=== PATIENT | female | born 1995 | race Caucasian/White ===

== ENCOUNTER 2016-11-26 15:58 | Emergency (ER) | payer SELFPAY ==
--- NOTE | 2016-11-26 17:31 | ED CLINICAL REPORT ---
Clinical Report - Physicians/Mid Levels [facility] [address] [place] [address] 11/26/2016 15:58 Patient: CANDE FOSTER Time Seen: 16:29; initial patient contact. Arrived- By private vehicle. Not in custody. Historian- patient. HISTORY OF PRESENT ILLNESS Chief Complaint: ANXIOUS and DEPRESSED. This started several weeks ago. No situational problems or recent drug use or alcohol consumption. Has not been sleeping. She has had anxiety. Has been depressed. No anger, unusual behavior, paranoia, delusions or suicidal thoughts. No self-injury inflicted or hallucinations. The symptoms are described as moderate. No injury is present. Similar symptoms previously: Recent medical care: Not recently seen/assessed. REVIEW OF SYSTEMS No headache, dizziness, chest pain, abdominal pain or vomiting. No diarrhea. She has had palpitations. All systems otherwise negative, except as recorded above. PAST HISTORY ( Anxiety . Depression. Asthma). SOCIAL HISTORY Never smoker. Occasional alcohol use. Has social support. Has place to stay. ADDITIONAL NOTES The nursing notes have been reviewed. PHYSICAL EXAM Vital Signs: 11/26/2016 16:15 BP: 150/81. HR: 84. RR: 18. O2 saturation: 97%. Temp: 97.6 F. Pain level now: 2/10. Have been reviewed. Hypertensive. Heart rate normal. Respiratory rate normal. Temperature normal. Oxygen saturation normal. Appearance: Alert. No acute distress. Appearance is normal. CVS: Normal heart rate and rhythm. Heart sounds normal. Respiratory: No respiratory distress. Breath sounds normal. Skin: Skin warm and dry. Normal skin color. Psych / Neuro: Oriented X 3. Appears depressed. Speech normal. Cognition normal. Thought process and content normal. Insight and judgement normal. PROGRESS AND PROCEDURES Course of Care: Vistaril 50mg IM given. Physical exam findings are improved. Symptoms better. Disposition: Discharged home in good and improved condition. Condition: good. CLINICAL IMPRESSION Anxiety reaction. 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 No suicidal ideation or suicidal attempt. INSTRUCTIONS Do not work today, tomorrow. Your Current Medications: CONTINUE TAKING THE FOLLOWING MEDICATIONS: None*. Prescription Medications: Celexa 40 mg: take 1 orally every day. Dispense thirty (30). No refill. Substitution is permissible. Vistaril 50 mg: take 1 orally every 6 hours as needed for anxiety. Dispense thirty (30). No refill. Substitution is permissible. Follow-up: Screening today revealed the patient's blood pressure to be in the hypertensive range. The patient should follow up with a primary care provider for blood pressure management. Follow-up with: [facility], , , [address], , [place], [address] Follow up in two days. Call for an appointment. (Electronically signed by Robles Hernandez Dr. 11/26/2016 18:05)
--- NOTE | 2016-11-26 17:31 | ED NURSING NOTES ---
Clinical Report - Nurses [facility] [address] [place] [address] 11/26/2016 15:58 [id number] 16:15 11/26/16. BP: 150/81 taken on the left arm, while sitting. HR: 84. RR: 18. O2 saturation: 97% on room air. Temp: 97.6 F. Pain level now: 09/12. --16:15 Aisha Aldana R.N. Acuity: LEVEL 3. Chief Complaint: (Anxiety reaction started yesterday, after argument with boyfriend). Alert. No acute distress. --16:21 Aisha Aldana R.N. Weight: 158.7 kg stated. Height/Length: 71 inches Per Patient. BMI: 48.8. --16:20 Aisha Aldana R.N. Medications None. --16:16 Aisha Aldana R.N. Medication/allergy information source: the patient. --16:21 Aisha Aldana R.N. Allergies None. --16:16 Aisha Aldana R.N. History Arrived by private vehicle. Historian: patient. Primary physician (carol). --16:15 Aisha Aldana R.N. This started yesterday. 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 PAST MEDICAL HX: Immunizations: has received tetanus within 10 years. Last normal menstrual period- November 06. SURGERY HX: Adenoidectomy. Tonsillectomy. SOCIAL HX: Never smoker. Occasional alcohol use. History of drug use: marijuana. Recently used drugs days ago. ABUSE ASSESSMENT: No report of abuse. FALL RISK ASSESSMENT: Fall risk assessment completed. No fall risk identified. NUTRITIONAL RISK ASSESSMENT: The nutritional risk assessment revealed no deficiencies. FUNCTIONAL ASSESSMENT: Functional assessment: no impairments noted. LEARNING NEEDS ASSESSMENT: The learning needs assessment revealed no barriers. SKIN INTEGRITY ASSESSMENT: Skin integrity risk assessment completed. No skin integrity risk identified. --16:21 Aisha Aldana R.N. PROBLEMS: Anxiety . Depression. Asthma. --16:17 Aisha Aldana R.N. Interventions ID band on patient. To room. --16:21 Aisha Aldana R.N. PHYSICAL ASSESSMENT Ambulatory to room. Patient gowned. GENERAL / NEURO / PSYCH: Alert. Oriented X 4. Appears anxious. HEENT: Mucous membranes are pink. RESPIRATORY: Respirations not labored. CVS: Capillary refill less than 2 seconds. GI / : Abdomen nontender. SKIN: Skin intact. Skin is warm and dry. Normal skin turgor. --16:21 Aisha Aldana R.N. NURSING PROGRESS NOTES Patient gowned. Head of bed elevated. Two patient identifiers checked. Call light placed in reach. Side rails up x 2. Bed placed in lowest position. Brakes of bed on. Patient ready for evaluation. --16:22 Aisha Aldana R.N. 17:08 11/26/2016 Vistaril (HydrOXYzine HCl) IM 50 mg given. Given in the right gluteus gregorio. Allergies verified, confirmed 5 rights and sedative warning given to the patient. --17:08 Aisha Aldana R.N. DISPOSITION / DISCHARGE Departure time: 1740. Condition at departure: improved. No learning barriers present. Discharge instructions provided and reviewed with the patient. Reviewed medication(s) side effects, precautions, dosing and course information. Prescription(s) given to the patient. Patient verbalized understanding. Written instructions provided in Malay. The patient was discharged home and accompanied by plumbing installer. She left the Emergency Department ambulatory and via private vehicle. Detention Sergeant driving. Medication list reviewed and validated. --19:39 Aisha Aldana R.N. 17:47 11/26/16. BP: 154/74. HR: 88. RR: 20. O2 saturation: 98% on room air. Temp: deferred. 16:15 11/26/16. BP: 150/81 taken on the left arm, while sitting. HR: 84. RR: 18. O2 saturation: 97% on room air. Temp: 97.6 F. Pain level now: 09/12. --19:39 Aisha Aldana R.N. Locked/Released at 11/26/2016 19:39 by Aisha Aldana R.N.
--- NOTE | 2016-11-26 17:31 | ED CLINICAL REPORT ---
Clinical Report - Physicians/Mid Levels [facility] [address] [place] [address] 11/26/2016 15:58 Patient: CANDE FOSTER Time Seen: 16:29; initial patient contact. Arrived- By private vehicle. Not in custody. Historian- patient. HISTORY OF PRESENT ILLNESS Chief Complaint: ANXIOUS and DEPRESSED. This started several weeks ago. No situational problems or recent drug use or alcohol consumption. Has not been sleeping. She has had anxiety. Has been depressed. No anger, unusual behavior, paranoia, delusions or suicidal thoughts. No self-injury inflicted or hallucinations. The symptoms are described as moderate. No injury is present. Similar symptoms previously: Recent medical care: Not recently seen/assessed. REVIEW OF SYSTEMS No headache, dizziness, chest pain, abdominal pain or vomiting. No diarrhea. She has had palpitations. All systems otherwise negative, except as recorded above. PAST HISTORY ( Anxiety . Depression. Asthma). SOCIAL HISTORY Never smoker. Occasional alcohol use. Has social support. Has place to stay. ADDITIONAL NOTES The nursing notes have been reviewed. PHYSICAL EXAM Vital Signs: 11/26/2016 16:15 BP: 150/81. HR: 84. RR: 18. O2 saturation: 97%. Temp: 97.6 F. Pain level now: 2/10. Have been reviewed. Hypertensive. Heart rate normal. Respiratory rate normal. Temperature normal. Oxygen saturation normal. Appearance: Alert. No acute distress. Appearance is normal. CVS: Normal heart rate and rhythm. Heart sounds normal. Respiratory: No respiratory distress. Breath sounds normal. Skin: Skin warm and dry. Normal skin color. Psych / Neuro: Oriented X 3. Appears depressed. Speech normal. Cognition normal. Thought process and content normal. Insight and judgement normal. PROGRESS AND PROCEDURES Course of Care: Vistaril 50mg IM given. Physical exam findings are improved. Symptoms better. Disposition: Discharged home in good and improved condition. Condition: good. CLINICAL IMPRESSION Anxiety reaction. 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 No suicidal ideation or suicidal attempt. INSTRUCTIONS Do not work today, tomorrow. Your Current Medications: CONTINUE TAKING THE FOLLOWING MEDICATIONS: None*. Prescription Medications: Celexa 40 mg: take 1 orally every day. Dispense thirty (30). No refill. Substitution is permissible. Vistaril 50 mg: take 1 orally every 6 hours as needed for anxiety. Dispense thirty (30). No refill. Substitution is permissible. Follow-up: Screening today revealed the patient's blood pressure to be in the hypertensive range. The patient should follow up with a primary care provider for blood pressure management. Follow-up with: [facility], , , [address], , [place], [address] Follow up in two days. Call for an appointment. (Electronically signed by Robles Hernandez Dr. 11/26/2016 18:05)
--- NOTE | 2016-11-26 17:31 | ED ORDER SUMMARY ---
..... Patient: CANDE FOSTER [facility] VisitID: [id number] [address] [place] [address] 21y, F Registration Date/Time: 11/26/2016 ORDER SHEET Weight: 158.7 kg (stated) Allergies: None GENERAL ORDERS: MEDICATION ORDERS: Vistaril IM 50 mg (NOW, Do not administer intravenously) (16:37 11/26/2016 Arslan Guajardo) (Ack 16:57 SRoberts R.N.) (17:08 Hali R.N.) IV FLUIDS: ORDER SHEET NOTES: [Electronically signed by Robles Hernandez Dr. (18:05 11/26/2016)] [Electronically signed by Aisha Aladna R.N. (19:39 11/26/2016)] [Electronically locked/signed by Aisha Aldana R.N. (19:39 11/26/2016)]
--- NOTE | 2016-11-26 17:31 | ED ORDER SUMMARY ---
..... Patient: CANDE FOSTER OrderSheet [facility] VisitID: [id number] [address] [place] [address] 21y, F Registration Date/Time: 11/26/2016 ORDER SHEET Weight: 158.7 kg (stated) Allergies: None GENERAL ORDERS: MEDICATION ORDERS: Vistaril IM 50 mg (NOW, Do not administer intravenously) (16:37 11/26/2016 Arslan Guajardo) (Ack 16:57 SRoberts R.N.) (17:08 Hali R.N.) IV FLUIDS: ORDER SHEET NOTES: [Electronically signed by Robles Hernandez Dr. (18:05 11/26/2016)] [Electronically signed by Aisha Aldana R.N. (19:39 11/26/2016)] [Electronically locked/signed by Aisha Aldana R.N. (19:39 11/26/2016)]
--- NOTE | 2016-11-26 17:31 | ED NURSING NOTES ---
Clinical Report - Nurses [facility] [address] [place] [address] 11/26/2016 15:58 [id number] 16:15 11/26/16. BP: 150/81 taken on the left arm, while sitting. HR: 84. RR: 18. O2 saturation: 97% on room air. Temp: 97.6 F. Pain level now: 09/12. --16:15 Aisha Aldana R.N. Acuity: LEVEL 3. Chief Complaint: (Anxiety reaction started yesterday, after argument with boyfriend). Alert. No acute distress. --16:21 Aisha Aldana R.N. Weight: 158.7 kg stated. Height/Length: 71 inches Per Patient. BMI: 48.8. --16:20 Aisha Aldana R.N. Medications None. --16:16 Aisha Aldana R.N. Medication/allergy information source: the patient. --16:21 Aisha Aldana R.N. Allergies None. --16:16 Aisha Aldana R.N. History Arrived by private vehicle. Historian: patient. Primary physician (carol). --16:15 Aisha Aldana R.N. This started yesterday. 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 PAST MEDICAL HX: Immunizations: has received tetanus within 10 years. Last normal menstrual period- November 06. SURGERY HX: Adenoidectomy. Tonsillectomy. SOCIAL HX: Never smoker. Occasional alcohol use. History of drug use: marijuana. Recently used drugs days ago. ABUSE ASSESSMENT: No report of abuse. FALL RISK ASSESSMENT: Fall risk assessment completed. No fall risk identified. NUTRITIONAL RISK ASSESSMENT: The nutritional risk assessment revealed no deficiencies. FUNCTIONAL ASSESSMENT: Functional assessment: no impairments noted. LEARNING NEEDS ASSESSMENT: The learning needs assessment revealed no barriers. SKIN INTEGRITY ASSESSMENT: Skin integrity risk assessment completed. No skin integrity risk identified. --16:21 Aisha Aldana R.N. PROBLEMS: Anxiety . Depression. Asthma. --16:17 Aisha Aldana R.N. Interventions ID band on patient. To room. --16:21 Aisha Aldana R.N. PHYSICAL ASSESSMENT Ambulatory to room. Patient gowned. GENERAL / NEURO / PSYCH: Alert. Oriented X 4. Appears anxious. HEENT: Mucous membranes are pink. RESPIRATORY: Respirations not labored. CVS: Capillary refill less than 2 seconds. GI / : Abdomen nontender. SKIN: Skin intact. Skin is warm and dry. Normal skin turgor. --16:21 Aisha Aldana R.N. NURSING PROGRESS NOTES Patient gowned. Head of bed elevated. Two patient identifiers checked. Call light placed in reach. Side rails up x 2. Bed placed in lowest position. Brakes of bed on. Patient ready for evaluation. --16:22 Aisha Aldana R.N. 17:08 11/26/2016 Vistaril (HydrOXYzine HCl) IM 50 mg given. Given in the right gluteus gregorio. Allergies verified, confirmed 5 rights and sedative warning given to the patient. --17:08 Aihsa Aldana R.N. DISPOSITION / DISCHARGE Departure time: 1740. Condition at departure: improved. No learning barriers present. Discharge instructions provided and reviewed with the patient. Reviewed medication(s) side effects, precautions, dosing and course information. Prescription(s) given to the patient. Patient verbalized understanding. Written instructions provided in Maltese. The patient was discharged home and accompanied by produce inspector. She left the Emergency Department ambulatory and via private vehicle. Braiding Operator driving. Medication list reviewed and validated. --19:39 Aisha Aldana R.N. 17:47 11/26/16. BP: 154/74. HR: 88. RR: 20. O2 saturation: 98% on room air. Temp: deferred. 16:15 11/26/16. BP: 150/81 taken on the left arm, while sitting. HR: 84. RR: 18. O2 saturation: 97% on room air. Temp: 97.6 F. Pain level now: 09/12. --19:39 Aisha Aldana R.N. Locked/Released at 11/26/2016 19:39 by Aisha Aldana R.N.
--- NOTE | 2016-11-26 19:39 | ED MAR SUMMARY ---
..... Medication Administration Record [facility] [address] [place] [address] Patient: CANDE FOSTER Visit ID: [id number] 21y, F Weight: 158.7 kg Height/Length: 71 in BMI: 48.8 ALLERGIES: None Given 17:08 11/26/2016 Aisha Aldana R.N. Medication Administered: VISTARIL [IM] (HYDROXYZINE HCL), Dose: 50 mg IM. Medication Ordered: Vistaril IM 50 mg (NOW, Do not administer intravenously).
--- NOTE | 2016-11-26 19:39 | ED DISCHARGE INSTRUCTIONS ---
Patient: CANDE FOSTER General Instructions [facility] VisitID: [id number] [address], [place] [address] 21y, F Registration Date/Time: 11/26/2016 Anxiety reaction. 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 No suicidal ideation or suicidal attempt. INSTRUCTIONS Do not work today, tomorrow. Your Current Medications: CONTINUE TAKING THE FOLLOWING MEDICATIONS: None*. Prescription Medications: Celexa 40 mg: take 1 orally every day. Dispense thirty (30). No refill. Substitution is permissible. Vistaril 50 mg: take 1 orally every 6 hours as needed for anxiety. Dispense thirty (30). No refill. Substitution is permissible. Follow-up: Screening today revealed the patient's blood pressure to be in the hypertensive range. The patient should follow up with a primary care provider for blood pressure management. Follow-up with: [facility], , , [address], , [place], [id number] Follow up in two days. Call for an appointment. ADDITIONAL INFORMATION Stress Reaction Anxiety is the feeling we all get when we think something bad might happen. It is a normal response to stress and usually causes only a mild reaction. When anxiety becomes more severe, emotions may interfere with daily life. In some cases, you may not even be aware of what it is youre anxious about! During an anxiety reaction, you may feel like you are helpless, nervous, depressed or irritable. Your body may show signs of anxiety in many ways. You may experience dry mouth, shakiness, dizziness, weakness, trouble breathing, chest pressure, headache, nausea, diarrhea, tiredness, inability to sleep or sexual problems. Home Care: 1) Try to locate the sources of stress in your life. They may not be obvious! These may include: -- Daily hassles of life which pile up (traffic jams, missed appointments, car troubles, etc.) -- Major life changes, both good (new baby, job promotion) and bad (loss of job, loss of loved one) -- Overload: feeling that you have too many responsibilities and can't take care of all of them at once -- Feeling helpless, feeling that your problems are beyond what youre able to solve 2) Notice how your body reacts to stress. Learn to listen to your body signals. This will help you take action before the stress becomes severe. 3) When you can, do something about the source of your stress. (Avoid hassles, limit the amount of change that happens in your life at one time and take a break when you feel overloaded). 4) Unfortunately, many stressful situations cannot be avoided. It is necessary to learn HOW TO MANAGE STRESS better. There are many proven methods that will reduce your anxiety. These include simple things like exercise, good nutrition and adequate rest. Also, there are certain techniques that are helpful: relaxation and breathing exercises, visualization, biofeedback and meditation. For more information about this, consult your doctor or go to a local bookstore and review the many books and tapes available on this subject. Follow Up If you feel that your anxiety is not responding to self-help measures, contact your doctor or make an appointment with a counselor. Get Prompt Medical Attention if any of the following occur: -- Your symptoms get worse -- Chest pain or trouble breathing -- Severe headache not relieved by rest and mild pain reliever -- Rapid or irregular heartbeat, fainting Depression Depression is one of the most common mental health problems today. It is not just a state of unhappiness or sadness. It is a true disease. The cause seems to be related to a decrease in chemicals that transmit signals in the brain. Having a family history of depression, alcoholism or suicide increases the risk. Chronic illness, chronic pain, migraine headaches and high emotional stress also increase the risk. Depression can cause many different symptoms, such as: -- Loss of appetite -- Over-eating -- Not being able to sleep -- Sleeping too much -- Tiredness not related to physical exertion -- Restlessness or irritability -- Slowness of movement or speech -- Feeling depressed or withdrawn -- Loss of interest in things you once enjoyed -- Difficulty in concentrating, poor memory, have trouble making decisions -- Thoughts of harming or killing oneself, or thoughts that life is not worth living -- Low self-esteem The best treatment for depression is a combination of medicine and psychotherapy. Antidepressant medicines can reduce suffering and can improve the ability to function during the depressed period. Therapy can offer emotional support and help you understand emotional factors that may be causing the depression. Home Care: 1) Be kind to yourself. Make it a point to do things that you enjoy (gardening, walking in nature, going to a movie, etc.). Reward yourself for small successes. 2) Take care of your physical body. Eat a balanced diet (low in saturated fat and high in fruits and vegetables). Establish an exercise plan at least 3 times a week for 30 minutes. Even mild-moderate exercise (like brisk walking) can make you feel better. 3) Avoid alcohol, which can make depression worse. Follow-Up with your doctor as advised. It is important to keep in contact with a health care provider until your symptoms begin to improve. Get Prompt Medical Attention if any of the following occur: -- Feeling extreme depression, fear, anxiety, or anger toward yourself or others -- Feeling out of control -- Feeling that you may try to harm yourself or another -- Hearing voices that others do not hear -- Seeing things that others do not see -- Cant sleep or eat for 3 days in a row Hydroxyzine Pamoate Oral capsule What is this medicine? HYDROXYZINE (christ DROX i zeen) is an antihistamine. This medicine is used to treat allergy symptoms. It is also used to treat anxiety and tension. This medicine can be used with other medicines to induce sleep before surgery. How should I use this medicine? Take this medicine by mouth with a full glass of water. Follow the directions on the prescription label. You may take this medicine with food or on an empty stomach. Take your medicine at regular intervals. Do not take your medicine more often than directed. Talk to your solar sales advisor regarding the use of this medicine in children. Special care may be needed. While this drug may be prescribed for children as young as 6 years of age for selected conditions, precautions do apply. Patients over 65 years old may have a stronger reaction and need a smaller dose. What side effects may I notice from receiving this medicine? Side effects that you should report to your doctor or health before and after school daycare worker as soon as possible: fast or irregular heartbeat difficulty passing urine seizures slurred speech or confusion tremor Side effects that usually do not require medical attention (report to your doctor or health before and after school daycare worker if they continue or are bothersome): constipation drowsiness fatigue headache stomach upset What may interact with this medicine? alcohol barbiturate medicines for sleep or seizures medicines for colds, allergies medicines for depression, anxiety, or emotional disturbances medicines for pain medicines for sleep muscle relaxants What if I miss a dose? If you miss a dose, take it as soon as you can. If it is almost time for your next dose, take only that dose. Do not take double or extra doses. Where should I keep my medicine? Keep out of the reach of children. Store at room temperature between 15 and 30 degrees C (59 and 86 degrees F). Keep container tightly closed. Throw away any unused medicine after the expiration date. What should I tell my health care provider before I take this medicine? They need to know if you have any of these conditions: any chronic illness difficulty passing urine glaucoma heart disease kidney disease liver disease lung disease an unusual or allergic reaction to hydroxyzine, cetirizine, other medicines, foods, dyes, or preservatives or trying to get breast-feeding What should I watch for while using this medicine? Tell your doctor or health before and after school daycare worker if your symptoms do not improve. You may get drowsy or dizzy. Do not drive, use machinery, or do anything that needs mental alertness until you know how this medicine affects you. Do not stand or sit up quickly, especially if you are an older patient. This reduces the risk of dizzy or fainting spells. Alcohol may interfere with the effect of this medicine. Avoid alcoholic drinks. Your mouth may get dry. Chewing sugarless gum or sucking hard candy, and drinking plenty of water may help. Contact your doctor if the problem does not go away or is severe. This medicine may cause dry eyes and blurred vision. If you wear contact lenses you may feel some discomfort. Lubricating drops may help. See your eye doctor if the problem does not go away or is severe. If you are receiving skin tests for allergies, tell your doctor you are using this medicine. You have been given the following additional information: Anxiety Reaction Depression Hydroxyzine Pamoate Oral capsule Do not work today, tomorrow. (Electronically signed by Robles Hernandez Dr. 11/26/2016 18:05)
--- NOTE | 2016-11-26 19:39 | ED MED RECONCILIATION SUMMARY ---
Patient: CANDE FOSTER Medication Reconciliation Report [facility] VisitID: [id number] [address] [place] [address] 21y, F Registration Date/Time: 11/26/2016 Weight: 158.7 kg Height/Length: 71 in. BMI: 48.8 ALLERGIES: None The patient's Home Medications are listed below: NONE. The source(s) of the original Home Medication information: patient The following Medications were given to the patient in the Emergency Department: Vistaril [IM] IM 50 mg, administered: 11/26/2016 5:08:00 PM The following Medications were prescribed to the patient: Celexa 40 mg: take 1 orally every day. Dispense thirty (30). No refill. Substitution is permissible. -- Robles Hernandez Dr. Vistaril 50 mg: take 1 orally every 6 hours as needed for anxiety. Dispense thirty (30). No refill. Substitution is permissible. -- Robles Hernandez Dr.
--- NOTE | 2016-11-26 19:39 | ED MAR SUMMARY ---
..... Medication Administration Record [facility] [address] [place] [address] Patient: CANDE FOSTER Visit ID: [id number] 21y, F Weight: 158.7 kg Height/Length: 71 in BMI: 48.8 ALLERGIES: None Given 17:08 11/26/2016 Aisha Aldana R.N. Medication Administered: VISTARIL [IM] (HYDROXYZINE HCL), Dose: 50 mg IM. Medication Ordered: Vistaril IM 50 mg (NOW, Do not administer intravenously).
--- NOTE | 2016-11-26 19:39 | ED DISCHARGE INSTRUCTIONS ---
Patient: CANDE FOSTER General Instructions [facility] VisitID: [id number] [address], [place] [address] 21y, F Registration Date/Time: 11/26/2016 Anxiety reaction. 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 No suicidal ideation or suicidal attempt. INSTRUCTIONS Do not work today, tomorrow. Your Current Medications: CONTINUE TAKING THE FOLLOWING MEDICATIONS: None*. Prescription Medications: Celexa 40 mg: take 1 orally every day. Dispense thirty (30). No refill. Substitution is permissible. Vistaril 50 mg: take 1 orally every 6 hours as needed for anxiety. Dispense thirty (30). No refill. Substitution is permissible. Follow-up: Screening today revealed the patient's blood pressure to be in the hypertensive range. The patient should follow up with a primary care provider for blood pressure management. Follow-up with: [facility], , , [address], , [place], [id number] Follow up in two days. Call for an appointment. ADDITIONAL INFORMATION Stress Reaction Anxiety is the feeling we all get when we think something bad might happen. It is a normal response to stress and usually causes only a mild reaction. When anxiety becomes more severe, emotions may interfere with daily life. In some cases, you may not even be aware of what it is youre anxious about! During an anxiety reaction, you may feel like you are helpless, nervous, depressed or irritable. Your body may show signs of anxiety in many ways. You may experience dry mouth, shakiness, dizziness, weakness, trouble breathing, chest pressure, headache, nausea, diarrhea, tiredness, inability to sleep or sexual problems. Home Care: 1) Try to locate the sources of stress in your life. They may not be obvious! These may include: -- Daily hassles of life which pile up (traffic jams, missed appointments, car troubles, etc.) -- Major life changes, both good (new baby, job promotion) and bad (loss of job, loss of loved one) -- Overload: feeling that you have too many responsibilities and can't take care of all of them at once -- Feeling helpless, feeling that your problems are beyond what youre able to solve 2) Notice how your body reacts to stress. Learn to listen to your body signals. This will help you take action before the stress becomes severe. 3) When you can, do something about the source of your stress. (Avoid hassles, limit the amount of change that happens in your life at one time and take a break when you feel overloaded). 4) Unfortunately, many stressful situations cannot be avoided. It is necessary to learn HOW TO MANAGE STRESS better. There are many proven methods that will reduce your anxiety. These include simple things like exercise, good nutrition and adequate rest. Also, there are certain techniques that are helpful: relaxation and breathing exercises, visualization, biofeedback and meditation. For more information about this, consult your doctor or go to a local bookstore and review the many books and tapes available on this subject. Follow Up If you feel that your anxiety is not responding to self-help measures, contact your doctor or make an appointment with a counselor. Get Prompt Medical Attention if any of the following occur: -- Your symptoms get worse -- Chest pain or trouble breathing -- Severe headache not relieved by rest and mild pain reliever -- Rapid or irregular heartbeat, fainting Depression Depression is one of the most common mental health problems today. It is not just a state of unhappiness or sadness. It is a true disease. The cause seems to be related to a decrease in chemicals that transmit signals in the brain. Having a family history of depression, alcoholism or suicide increases the risk. Chronic illness, chronic pain, migraine headaches and high emotional stress also increase the risk. Depression can cause many different symptoms, such as: -- Loss of appetite -- Over-eating -- Not being able to sleep -- Sleeping too much -- Tiredness not related to physical exertion -- Restlessness or irritability -- Slowness of movement or speech -- Feeling depressed or withdrawn -- Loss of interest in things you once enjoyed -- Difficulty in concentrating, poor memory, have trouble making decisions -- Thoughts of harming or killing oneself, or thoughts that life is not worth living -- Low self-esteem The best treatment for depression is a combination of medicine and psychotherapy. Antidepressant medicines can reduce suffering and can improve the ability to function during the depressed period. Therapy can offer emotional support and help you understand emotional factors that may be causing the depression. Home Care: 1) Be kind to yourself. Make it a point to do things that you enjoy (gardening, walking in nature, going to a movie, etc.). Reward yourself for small successes. 2) Take care of your physical body. Eat a balanced diet (low in saturated fat and high in fruits and vegetables). Establish an exercise plan at least 3 times a week for 30 minutes. Even mild-moderate exercise (like brisk walking) can make you feel better. 3) Avoid alcohol, which can make depression worse. Follow-Up with your doctor as advised. It is important to keep in contact with a health care provider until your symptoms begin to improve. Get Prompt Medical Attention if any of the following occur: -- Feeling extreme depression, fear, anxiety, or anger toward yourself or others -- Feeling out of control -- Feeling that you may try to harm yourself or another -- Hearing voices that others do not hear -- Seeing things that others do not see -- Cant sleep or eat for 3 days in a row Hydroxyzine Pamoate Oral capsule What is this medicine? HYDROXYZINE (christ DROX i zeen) is an antihistamine. This medicine is used to treat allergy symptoms. It is also used to treat anxiety and tension. This medicine can be used with other medicines to induce sleep before surgery. How should I use this medicine? Take this medicine by mouth with a full glass of water. Follow the directions on the prescription label. You may take this medicine with food or on an empty stomach. Take your medicine at regular intervals. Do not take your medicine more often than directed. Talk to your charge entry clerk regarding the use of this medicine in children. Special care may be needed. While this drug may be prescribed for children as young as 6 years of age for selected conditions, precautions do apply. Patients over 65 years old may have a stronger reaction and need a smaller dose. What side effects may I notice from receiving this medicine? Side effects that you should report to your doctor or health school child care attendant as soon as possible: fast or irregular heartbeat difficulty passing urine seizures slurred speech or confusion tremor Side effects that usually do not require medical attention (report to your doctor or health school child care attendant if they continue or are bothersome): constipation drowsiness fatigue headache stomach upset What may interact with this medicine? alcohol barbiturate medicines for sleep or seizures medicines for colds, allergies medicines for depression, anxiety, or emotional disturbances medicines for pain medicines for sleep muscle relaxants What if I miss a dose? If you miss a dose, take it as soon as you can. If it is almost time for your next dose, take only that dose. Do not take double or extra doses. Where should I keep my medicine? Keep out of the reach of children. Store at room temperature between 15 and 30 degrees C (59 and 86 degrees F). Keep container tightly closed. Throw away any unused medicine after the expiration date. What should I tell my health care provider before I take this medicine? They need to know if you have any of these conditions: any chronic illness difficulty passing urine glaucoma heart disease kidney disease liver disease lung disease an unusual or allergic reaction to hydroxyzine, cetirizine, other medicines, foods, dyes, or preservatives or trying to get breast-feeding What should I watch for while using this medicine? Tell your doctor or health school child care attendant if your symptoms do not improve. You may get drowsy or dizzy. Do not drive, use machinery, or do anything that needs mental alertness until you know how this medicine affects you. Do not stand or sit up quickly, especially if you are an older patient. This reduces the risk of dizzy or fainting spells. Alcohol may interfere with the effect of this medicine. Avoid alcoholic drinks. Your mouth may get dry. Chewing sugarless gum or sucking hard candy, and drinking plenty of water may help. Contact your doctor if the problem does not go away or is severe. This medicine may cause dry eyes and blurred vision. If you wear contact lenses you may feel some discomfort. Lubricating drops may help. See your eye doctor if the problem does not go away or is severe. If you are receiving skin tests for allergies, tell your doctor you are using this medicine. You have been given the following additional information: Anxiety Reaction Depression Hydroxyzine Pamoate Oral capsule Do not work today, tomorrow. (Electronically signed by Robles Hernandez Dr. 11/26/2016 18:05)
--- NOTE | 2016-11-26 19:39 | ED MED RECONCILIATION SUMMARY ---
Patient: CANDE FOSTER Medication Reconciliation Report [facility] VisitID: [id number] [address] [place] [address] 21y, F Registration Date/Time: 11/26/2016 Weight: 158.7 kg Height/Length: 71 in. BMI: 48.8 ALLERGIES: None The patient's Home Medications are listed below: NONE. The source(s) of the original Home Medication information: patient The following Medications were given to the patient in the Emergency Department: Vistaril [IM] IM 50 mg, administered: 11/26/2016 5:08:00 PM The following Medications were prescribed to the patient: Celexa 40 mg: take 1 orally every day. Dispense thirty (30). No refill. Substitution is permissible. -- Robles Hernandez Dr. Vistaril 50 mg: take 1 orally every 6 hours as needed for anxiety. Dispense thirty (30). No refill. Substitution is permissible. -- Robles Hernandez Dr.
== END 2016-11-26 17:40 | disposition home or self-care (01) ==
LOC: ED SRH 15:58
DX: F33.9 Major depressive disorder, recurrent, unspecified (principal); F41.1 Generalized anxiety disorder